=== PATIENT | male | born 1990 | race African-American/Black ===

== ENCOUNTER 2017-09-21 04:35 | Emergency (ER) | payer BC ==
[2017-09-21 04:53] VITALS: BP 138/75; BMI 25.1
--- NOTE | 2017-09-21 05:33 | CT ---
CT maxillofacial without contrast Indication: Left jaw fracture 2 weeks prior and now pain Technique: Helical images through the face without contrast. Coronal and sagittal reformats provided. Findings: There is fracture of the angle of the mandible on the left comment with involvement of left molar tooth. Temporomandibular joints are intact. Upper cervical spine is intact. Paranasal sinuses and mastoid air cells are clear. Zygomatic arches are normal. Nasal bones are normal. Paranasal sinus es and mastoid air cells are clear. There is soft tissue swelling over the left jaw Impression: 1. Left mandibular body fracture at the angle of the mandible, involving the left molar posterior too th. 2. Dental caries of the posterior maxillary molars bilaterally. 3. No other fracture. Reported By:
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
[2017-09-21] MEDS ORDERED: TORADOL 60 MG VIAL IM ONE (05:55)
[2017-09-21] MEDS ORDERED: TORADOL 60 MG VIAL ONE (05:56)
== END 2017-09-21 06:00 | disposition home or self-care (01) ==
LOC: ER 04:35
DX: S02.642A Fracture of ramus of left mandible, initial encounter for closed fracture (principal); Y33.XXXA Other specified events, undetermined intent, initial encounter
CPT/HCPCS: 70486; 96372; 99282; J1885